=== PATIENT | male | born 1985 | race Hispanic/Latino ===

== ENCOUNTER 2016-11-26 18:44 | Emergency (ER) | payer OTHER ==
[2016-11-26 18:57] VITALS: TEMP 98.2
[2016-11-26] MEDS ORDERED: Albuterol-Ipratrop 3 mg / 0.5 (3 ml) UD ONE (20:02)
[2016-11-26] MEDS ORDERED: Albuterol-Ipratrop 3 mg / 0.5 (3 ml) UD INH STA ×2 (20:04)
[2016-11-26 20:20] VITALS: BP 126/66; PULSE 73; RESP 18; O2SAT 97
[2016-11-26 20:26] LABS: BASO % 0.6 % (0.0-2.0); EOS % 0.3 % (0.0-4.0); HEMATOCRIT 49.1 % (35.0-51.0); LYMPH # 2.1 K/uL (1.0-4.3); LYMPH % 33.5 % (20.0-40.0); MEAN CELL VOLUME 90.2 fl (80.0-94.0); MEAN CORPUSCULAR HEMOGLOBIN 31.2 pg (27.0-31.0); MEAN CORPUSCULAR HGB CONC 34.6 g/dL (33.0-37.0); MEAN PLATELET VOLUME 7.7 fl (7.2-11.7); MONO # 0.4 K/uL (0.0-0.8); MONO % 5.8 % (0.0-10.0); NEUT # 3.7 K/uL (1.8-7.0); NEUT % 59.8 % (50.0-75.0); NRBC % 0.1 % (0.0-0.0); WHITE BLOOD COUNT 6.1 K/uL (4.8-10.8)
[2016-11-26 20:38] LABS: ALB/GLOB RATIO 1.3 (1.0-2.1); ALKALINE PHOSPHATASE 62 U/L (38-126); ALT/SGPT 35 U/L (21-72); AST/SGOT 31 U/L (17-59); BILIRUBIN,TOTAL 1.1 mg/dl (0.2-1.3); BLOOD UREA NITROGEN 15 mg/dl (9-20); CALCIUM 10.3 mg/dL (8.4-10.2); CARBON DIOXIDE 25 mmol/L (22-30); CHLORIDE 103 mmol/L (98-107); GFR AFRICAN-AMERICAN > 60; GLUCOSE,RANDOM 86 mg/dL (75-110); POTASSIUM 3.8 MMOL/L (3.6-5.0); SODIUM 144 mmol/l (132-148); TOTAL PROTEIN 8.4 G/DL (6.3-8.2)
--- NOTE | 2016-11-26 21:16 | ED PDOC ---
HPI: SOB/CHF/COPD Time Seen by Provider: 11/26/16 19:21 Chief Complaint (Nursing): Shortness Of Breath Chief Complaint (Provider): Shortness Of Breath History Per: Patient History/Exam Limitations: no limitations Onset/Duration Of Symptoms: Days (x3 days) Current Symptoms Are (Timing): Still Present Additional Complaint(s): 31 y/o male who presents to the emergency department with a complaint of shortness of breath x3 days. Associated with a headache (had resolved since). Denies chest pain, nausea, vomiting, diarrhea, or fever. Patient states he's been able to engage in work activity but sometimes has a sensation of that being able to take a full deep breath. Of note, patient reports he does suffer from seasonal allergies but has not had any nasal allergy thus far this spring until today. Past Medical History Reviewed: Historical Data, Nursing Documentation, Vital Signs Vital Signs: Last Vital Signs Temp 98.2 F 11/26/16 18:55 Pulse 73 11/26/16 20:10 Resp 18 11/26/16 20:10 BP 126/66 11/26/16 20:10 Pulse Ox 97 11/26/16 21:19 - Medical History PMH: No Chronic Diseases - Surgical History Surgical History: No Surg Hx - Family History Family History: States: Unknown Family Hx - Social History Current smoker - smoking cessation education provided: No Alcohol: Social Drugs: Cannabis - Home Medications Home Medications: Ambulatory Orders Medication Instructions Recorded Albuterol HFA [Ventolin HFA 90 1 - 2 puff IH Q6 PRN #1 inhaler 11/26/16 mcg/actuation (8 g)] Cetirizine HCl [Zyrtec] 10 mg PO QAM #10 capsule 11/26/16 - Allergies Allergies/Adverse Reactions: Allergies Allergy/AdvReac Type Severity Reaction Status Date / Time No Known Allergies Allergy Verified 11/26/16 18:54 Review of Systems ROS Statement: Except As Marked, All Systems Reviewed And Found Negative Constitutional: Negative for: Fever Cardiovascular: Negative for: Chest Pain Respiratory: Positive for: Shortness of Breath Gastrointestinal: Negative for: Nausea, Vomiting, Diarrhea Neurological: Positive for: Headache (had resolved since) Physical Exam - Reviewed Nursing Documentation Reviewed: Yes Vital Signs Reviewed: Yes - Physical Exam Appears: Positive for: Non-toxic, No Acute Distress Head Exam: Positive for: ATRAUMATIC, NORMOCEPHALIC Skin: Positive for: Normal Color, Warm, Dry Eye Exam: Positive for: Normal appearance. Negative for: Conjunctival injection ENT: Positive for: Normal ENT Inspection. Negative for: Pharyngeal Erythema Neck: Positive for: Normal, Supple Cardiovascular/Chest: Positive for: Regular Rate, Rhythm. Negative for: Murmur Respiratory: Positive for: Decreased Breath Sounds (decreased air entry at the bases bilaterally). Negative for: Rhonchi, Wheezing Neurologic/Psych: Positive for: Alert, Oriented - Laboratory Results Result Diagrams: 11/26/16 20:20 11/26/16 20:20 - ECG O2 Sat by Pulse Oximetry: 97 (RA) Pulse Ox Interpretation: Normal Medical Decision Making Medical Decision Making: Time: 19:21 Initial impression: 31 y/o male with shortness of breath Initial plan: --D-Dimer (COAG) Stat --Chest Two Views (PA/LAT) (RAD) --Duoneb 3mg/0.5mg (3ml) UD --Duoneb 3mg/0.5mg (3ml) UD --Heplock Insertion --Peak Flow Pre/Post TX --Peak Flow Pre/Post TX --Revaluation Time: 21:45 --Chest X-ray show no significant or acute diseases. --Labs were reviewed and show no clinical abnormalities. --Results were discussed with patient and he verbally understood and will follow up with PMD. Upon provider reevaluation patient symptoms has improved and is medically stable , and requires no further treatment in the ED at this time. Patient will be discharged home with Rx for Albuterol HFA and Zyrtec 10 mg. Counseling was provided and all questions were answered regarding diagnosis and need for follow up with PMD. There is agreement to discharge plan. Return if symptoms persist or worsen. Clinical Impression: Bronchospasm and seasonal allergies Scribe Attestation: Documented by Melvi Mcnamara, acting as a scribe for Kendall Macias MD. Provider Scribe Attestation: All medical record entries made by the Scribe were at my direction and personally dictated by me. I have reviewed the chart and agree that the record accurately reflects my personal performance of the history, physical exam, medical decision making, and the department course for this patient. I have also personally directed, reviewed, and agree with the discharge instructions and disposition. Disposition - Clinical Impression Clinical Impression: Bronchospasm Counseled Patient/Family Regarding: Studies Performed, Rx Given - Disposition Disposition: Routine/Home Disposition Time: 21:45 Condition: STABLE Prescriptions: Albuterol HFA [Ventolin HFA 90 mcg/actuation (8 g)] 1 - 2 puff IH Q6 PRN #1 inhaler PRN Reason: Shortness Of Breath Cetirizine HCl [Zyrtec] 10 mg PO QAM #10 capsule Instructions: Allergies (ED), Bronchospasm (ED)
--- NOTE | 2016-11-27 09:20 | RAD ---
HISTORY: SOB COMPARISON: No prior. TECHNIQUE: Chest PA and lateral FINDINGS: LUNGS: No active pulmonary disease. PLEURA: No significant pleural effusion identified. No pneumothorax apparent. CARDIOVASCULAR: Normal. OSSEOUS STRUCTURES: No significant abnormalities. VISUALIZED UPPER ABDOMEN: Normal. OTHER FINDINGS: None. IMPRESSION: No active disease.
== END 2016-11-26 21:54 | disposition home or self-care (01) ==
LOC: H.ER 18:44
DX: J98.01 Acute bronchospasm (principal); R06.02 Shortness of breath; R51 Headache